=== PATIENT | male | born 1955 | race Caucasian/White ===

== ENCOUNTER 2019-09-25 11:51 | Outpatient (CLI) | payer BC, SELFPAY ==
[2019-09-25 12:51] LABS: Hemoglobin A1C 5.7 % (<5.7)
[2019-09-25 13:20] LABS: Free T4 Free Thyroxine 0.97 ng/mL (0.78-2.19)
[2019-09-25 15:16] LABS: Alanine Aminotransferase 44 U/L (4-50); Albumin Level 4.3 g/dL (3.5-5.1); Alkaline Phosphatase 56 U/L (38-126); Aspartate Amino Transferase 34 U/L (17-59); Bilirubin,Total 0.7 mg/dL (0.2-1.3); Blood Urea Nitrogen 14 mg/dL (9-20); Calcium 9.9 mg/dL (8.4-10.2); Carbon Dioxide 28 mmol/L (22-30); Chloride 102 mmol/L (98-107); Cholesterol 149 mg/dL (0-200); Estimated Glomerular Filt Rate > 60; Glucose 98 mg/dL (75-110); HDL Direct 29 mg/dL; Potassium 4.2 mmol/L (3.4-5.0); Sodium 138 mmol/L (137-145); Triglycerides 89 mg/dL (<150)
[2019-09-25 15:27] LABS: LDL Cholesterol Direct 112 mg/dL
[2019-09-25 15:50] LABS: Prostate Specific Antigen 0.8 ng/mL (< OR = 4.0)
[2019-09-28 04:22] LABS: Homocysteine 9.2 umol/L (<11.4)
== END 2019-09-25 11:52 | disposition home or self-care (01) ==
PROVIDERS: PCP Internal Medicine; Visit Provider Internal Medicine
DX: E78.2 Mixed hyperlipidemia (principal); Z79.899 Other long term (current) drug therapy; I10 Essential (primary) hypertension; Z12.5 Encounter for screening for malignant neoplasm of prostate
CPT/HCPCS: 36415; 80048; 80061; 80076; 82542; 83036; 83090; 84153; 84439; 84443; G0103

== ENCOUNTER 2019-10-01 15:31 | Outpatient (CLI) | payer BC, SELFPAY ==
[2019-10-02 10:09] LABS: Reference Lab Test Result NEGATIVE
== END 2019-10-01 15:32 | disposition home or self-care (01) ==
PROVIDERS: PCP Internal Medicine; Visit Provider Internal Medicine
DX: Z20.828 Contact with and (suspected) exposure to other viral communicable diseases (principal)
CPT/HCPCS: 36415; 86769

== ENCOUNTER 2019-12-19 09:33 | Outpatient (CLI) | payer BC, SELFPAY ==
--- NOTE | 2019-12-23 06:16 | SLEEP_ITS ---
Home Sleep Test DATE OF STUDY: 12/19/2019 ORDERING PHYSICIAN: Benjamin Sunshine M.D. REASON FOR THIS STUDY: Hypersomnia. HISTORY: The patient is a 64-year-old man, 5 feet 10 inches tall, weighing 275 pounds with a body mass index of 39.4. He has complaints of hypersomnia. He does wake up during the night. His sleep is not refreshing. He rarely snores loudly enough that others complain about it, although he does occasionally snore. He occasionally awakens at night with heartburn, belching and coughing. He does not awaken from sleep feeling short of breath. He does not have sleep problems sleeping if he has a cold. He rarely wakes up gasping for breath at night. He does not have breathing problems at night observed by others. He occasionally sweats excessively at night. He never notices his heart pounding or beating irregularly at night. He occasionally falls asleep during the day, never involuntarily, never while driving. 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 He does not feel paralyzed on waking or falling asleep. He does not have vivid dreamlike scenes upon awakening or falling asleep. He is not afraid to go to sleep. He does not have nightmares. He rarely remembers his dreams. He frequently has racing thoughts, occasionally has feelings of sadness, depression and anxiety. He does not have muscular tension, does not notice parts of his body jerking, does not kick at night, does not have crawly achy feelings in his legs and does not have leg pain at night. He denies morning jaw pain and does not grind his teeth during sleep. He is not bothered by pain during the day. He is not awakened by pain at night. He rarely feels stiff in the morning. He occasionally wakes up with sore or achy muscles. He occasionally wakes up with pain in the neck and spine. Normal bedtime is 10:30 p.m., falling asleep in a few minutes, waking 2-3 times at night for 30 minutes and he will go to the bathroom during this time. He wakes in the morning at 6:30 a.m. He estimates 8 hours of sleep at night. Same schedule on the weekends. He does not take naps. A short nap might be refreshing. Most of the time, he feels good in the morning. MEDICAL COMORBIDITIES: Atrial fibrillation, hypertension, hyperlipidemia, hypersomnolence. MEDICATIONS: Medications are not listed in the survey nor the patient's office note. HABITS: Never smoked tobacco. Coffee 2 cups a day. No alcohol. DESCRIPTION OF THE STUDY: On the [place] Sleepiness Scale, the score is 9. This was conducted as an unattended type 3 portable home sleep test using 4 channel monitoring including respiratory effort channel, snoring channel, oxygen saturation channel, and heart rate channel. This study was scored using [facility] guidelines. Duration was 8 hours 9 minutes. The apnea-hypopnea index is 20. Oxygen desaturation index is 16. He had 50 apneas. The majority of the apneas 45, 90% were central, 5 apneas were obstructive or 10% of the apneas, there were 111 hypopneas and 100 snoring events with 51 minutes, 10% of the study spent below 88%. Lowest desaturation is 78%. Heart rate ranged from 51 to 95. IMPRESSION: This study provides evidence of at least moderate sleep-disordered breathing G47.33 with a significant portion of central apneas, but likely less than 50% of the events. He had also obstructive apneas, hypopneas and deep desaturation to 78% spending 51 minutes below 88%. The patient has significant medical comorbidities including hypertension, atrial fibrillation. We would recommend auto PAP with pressures between 5 and 15 cm and close followup within a month. We would expect the apnea-hyp
== END 2019-12-19 09:34 | disposition home or self-care (01) ==
LOC: ANHCSM 09:40
PROVIDERS: PCP Internal Medicine; Visit Provider Internal Medicine
DX: G47.10 Hypersomnia, unspecified (principal); Z68.41 Body mass index [BMI] 40.0-44.9, adult; I48.91 Unspecified atrial fibrillation
CPT/HCPCS: 95806

== ENCOUNTER 2020-03-06 10:00 | Outpatient (CLI) | payer BC, SELFPAY ==
[2020-03-06 10:40] LABS: Basophils Percent Auto 0.6 % (0.2-1.2); Eosinophils Percent Auto 0.4 % (0-4.4); Hematocrit 48.4 % (42.0-52.0); Hemoglobin 16.5 g/dL (14.0-18.0); Immature Granulocyte Absolute 0.02 K/mm3 (0.00-0.031); Immature Granulocyte Percent A 0.4 % (0-0.5); Lymphocytes Absolute Auto 1.54 K/mm3 (0.9-3.2); Lymphocytes Percent Auto 29.3 % (18.3-44.2); Mean Corpuscular HGB Conc 34.1 g/dl (32-36); Mean Corpuscular Hemoglobin 32.2 pg (26-34); Mean Corpuscular Volume 94.5 fl (80-100); Mean Platelet Volume 9.6 fl (7.4-10.4); Monocytes Absolute Auto 0.6 K/mm3 (0.1-0.6); Monocytes Percent Auto 11.8 % (2.6-8.5); Neutrophils Percent Auto 57.5 % (45.5-73.1); Platelet Count Result 282 k/mm3 (150-375); Red Blood Count 5.12 M/mm3 (4.6-6.20); White Blood Count 5.3 K/mm3 (4.5-10.0)
[2020-03-06 10:48] LABS: Hemoglobin A1C 5.2 % (<5.7)
[2020-03-06 10:57] LABS: Potassium 4.2 mmol/L (3.4-5.0)
[2020-03-06 11:01] LABS: Alanine Aminotransferase 56 U/L (4-50); Albumin Level 4.4 g/dL (3.5-5.1); Alkaline Phosphatase 57 U/L (38-126); Anion Gap 9 mmol/L (8-16); Aspartate Amino Transferase 37 U/L (17-59); Bilirubin,Total 0.8 mg/dL (0.2-1.3); Blood Urea Nitrogen 14 mg/dL (9-20); Calcium 9.4 mg/dL (8.4-10.2); Carbon Dioxide 31 mmol/L (22-30); Chloride 101 mmol/L (98-107); Cholesterol 149 mg/dL (0-200); Estimated Glomerular Filt Rate > 60; Glucose 107 mg/dL (75-110); HDL Direct 32 mg/dL; Sodium 141 mmol/L (137-145); Triglycerides 92 mg/dL (<150)
[2020-03-06 11:09] LABS: LDL Cholesterol Direct 110 mg/dL
[2020-03-10 06:19] LABS: Homocysteine 11.6 umol/L (<11.4)
[2020-03-11 09:24] LABS: Vitamin D 1,25 (OH)2 Total 50 pg/mL (18-72); Vitamin D2 1,25 (OH)2 <8 pg/mL; Vitamin D3 1,25 (OH)2 50 pg/mL
== END 2020-03-06 10:01 | disposition home or self-care (01) ==
PROVIDERS: PCP Internal Medicine; Visit Provider Internal Medicine
DX: E55.9 Vitamin D deficiency, unspecified (principal); I10 Essential (primary) hypertension; Z79.899 Other long term (current) drug therapy; R79.9 Abnormal finding of blood chemistry, unspecified; E78.5 Hyperlipidemia, unspecified; Z12.5 Encounter for screening for malignant neoplasm of prostate
CPT/HCPCS: 36415; 80053; 80061; 82652; 83036; 83090; 84153; 85025